=== PATIENT | female | born 1940 | race Caucasian/White ===

== ENCOUNTER 2022-10-30 12:23 | Observation (INO) | payer MEDICARE, SELFPAY ==
[2022-10-30 12:25] VITALS: BP 167/108; PULSE 92; RESP 18; TEMP 36.6; O2SAT 99; BMI 31.8
--- NOTE | 2022-10-30 13:06 | ED.VIS.FEGU ---
HPI HPI - Female History of Present Illness Chief Complaint: Vag Bleeding Narrative Narrative: 82-year-old female presenting with intermittent bleeding for the course of the month. Apparently she had an CAT scan done at an outside facility which showed concern for malignancy. She was at gynecology today and was getting a biopsy and lost about an estimated 500 cc of blood and was sent to the emergency room due to continued bleeding with initial plan to go to the OR for D&C. On arrival her depends does not appear to be bloody. Her vital signs are stable and she is afebrile. There is concern that she is on Eliquis and she might bleed more. Patient is elderly and she is not a good informant. She is also very hard of hearing. PFSH PFSH Allergy/AdvReac Type Severity Reaction Status Date / Time codeine Allergy NEEDS Verified 10/30/22 12:24 FOLLOW-UP Social History Smoking Status: Never smoker ROS ROS ED Constitutional Constitutional ED: Denies chills or fever(s) Eyes Eyes: Denies change in vision ENT ENT ED: Denies rhinorrhea or sore throat Cardiovascular Cardiovascular: Denies chest pain or palpitations Respiratory/Chest Respiratory/Chest: Denies cough or dyspnea Gastrointestinal Gastrointestinal: Denies abdominal pain, constipation, nausea or vomiting Genitourinary Genitourinary ED: Reports other Details: Vaginal bleeding Musculoskeletal Musculoskeletal: Denies arthralgias or myalgias Integumentary Denies abscess or Abrasions Neurologic Neurologic: Denies headache(s) or paresthesias Psychiatric Psychiatric: Denies anxiety or depression EXAM Physical Exam Const Vital Signs: 10/30/22 12:25 Temperature 97.8 F Temperature Source Temporal Pulse Rate 92 Respiratory Rate 18 Blood Pressure 167/108 H Blood Pressure Mean 127 Pulse Ox 99 Oxygen Delivery Method Room Air Positive well nourished General Appearance ED: NAD HEENT Reports moist mucous membranes Negative for trauma Eyes PERRL and EOMs intact bilaterally General Eye ED: Negative for pale conjunctiva Neck no lymphadenopathy Resp normal respiratory effort and clear to auscultation bilaterally Auscultation: Negative for rales, rhonchi or wheezes Cardio regular rate and regular rhythm GI normal to inspection, nondistended, normoactive bowel sounds Extremity normal to inspection and full ROM Neuro oriented x3 and CN's II-XII intact bilaterally Sensorium / Orientation: alert Motor Exam: strength 5/5 throughout Psych mental status grossly normal Skin no rashes or lesions noted and no wounds General Skin Exam: Negative for jaundice MDM MDM MDM Narrative Medical decision making narrative: At the time of entering the room Dr. Cope was in the room and did a vaginal exam and there was no significant bleeding. Blood work will be obtained. Patient currently with no active bleeding. Dr. Cope did speak to her and she is unsure if she wants to have a D&C. There is no family in the room. Gynecology requested a CBC, BMP, INR, type and screen. We will wait for the results of these test to come back and speak with family as she does not have any with her. CBC showed a white blood cell count of 9.8, hemoglobin 14.0. Platelets are normal at 393. PT and INR normal. Renal function electrolytes within normal limits. Discussed with Dr. Cope who had spoken to her POA who could not come and get her today. There is concerned about sending her home overnight. She states that she will admit her for observation and monitoring due to the vaginal bleeding and discussed the procedures with her POA tomorrow. Impression: 1. Vaginal bleeding 2. Pelvic mass Lab Data Attestation: I reviewed the patient's lab results. Labs: Laboratory Results - last 24 hr 10/30/22 10/30/22 10/30/22 13:05 13:05 13:05 WBC 9.8 RBC 4.65 Hgb 14.0 Hct 45.0 MCV 96.8 MCH 30.1 MCHC 31.1 L RDW Std Deviation 54.0 H RDW Coeff of Mike 15.1 H Plt Count 393 MPV 10.1 Immature Gran % (Auto) 0.400 Neut % (Auto) 53.5 Lymph % (Auto) 26.0 [place] % (Auto) 10.0 Eos % (Auto) 9.7 H Baso % (Auto) 0.4 Absolute Neuts (auto) 5.3 Absolute Lymphs (auto) 2.55 Nucleated RBC % 0 PT 13.1 INR 1.0 Sodium 143 Potassium 4.2 Chloride 110 H Carbon Dioxide 26.0 Anion Gap 7 BUN 9 Creatinine 0.78 Estim Creat Clear Calc 37.68 Est GFR (MDRD) Af Amer 91 Est GFR (MDRD) Non-Af 75 BUN/Creatinine Ratio 11.6 Glucose 98 Calcium 10.1 Discharge Plan Triage Chief Complaint: Vag Bleeding ED Provider: Dipak Gibson
[2022-10-30 13:17] LABS: Absolute Lymphocyte Count 2.55 X10^3/uL (0.83-4.51); Absolute Neutrophil Count 5.3 X10^3/uL (2.0-7.7); Basophil# 0.04 X10^3/uL; Basophil% 0.4 % (0-1); Eosinophil# 0.95 X10^3/uL; Eosinophils% 9.7 % (0-5); Lymphocyte # 2.55 X10^3/ul (0.83-4.51); Mean Corp Hgb Conc 31.1 g/dL (32-36); Mean Corpuscular Hgb 30.1 pg (27.0-32.0); Mean Corpuscular Volume 96.8 fL (81-99); Mean Platelet Vol. 10.1 fl (6.2-12.0); Monocyte# 0.98 X10^3/uL; NRBC Flagged by Analyzer 0 % (0-5); Neutrophil # 5.25 X10^3/uL (2.7-7.7); Neutrophil % 53.5 % (47-70); Platelet Count 393 K/mm3 (150-450); RBC Distribution Width CV 15.1 % (11.6-14.6); Red Blood Count 4.65 M/mm3 (4.2-5.4); White Blood Count 9.8 K/mm3 (4.4-11.0)
[2022-10-30 13:26] LABS: Prothrombin Time (Protime)PT. 13.1 SECONDS (11.7-14.9)
[2022-10-30 13:31] LABS: Anion Gap 7 (5-15); BUN 9 mg/dL (7-18); BUN/Creat Ratio 11.6 RATIO (10-20); Calcium,Total 10.1 mg/dL (8.5-10.1); Chloride 110 mmol/L (98-107); Creatinine, Serum 0.78 mg/dL (0.55-1.02); EST Glomerular Filtration Rate 75 mL/min (>60); Est Glom Filt Rate - Afr Amer 91 mL/min (>60); Estimated Creatinine Clearance 37.68 ml/min; Glucose 98 mg/dL (74-106); Potassium 4.2 mmol/L (3.5-5.1); Sodium Level 143 mmol/L (136-145)
[2022-10-30 15:28] VITALS: BP 161/84; PULSE 80; RESP 17; TEMP 36.9; O2SAT 99
[2022-10-30 16:07] VITALS: BMI 30.4
--- NOTE | 2022-10-30 17:34 | HP.PCM.OB_ITS ---
HPI - General General Date of Admission: 10/30/22 Date of Service: 10/30/22 Chief Complaint: vaginal bleeding HPI Narrative ROSALES ROCHE, is a 82 F who presents with VB. She was evaluated in the office by MANUFACTURER AGENT for vaginal bleeding. She was recently seen at an outside ER for this. At that time Hgb ~13 and she had a 2 cm uterine mass on pelvic imaging. She was instructed to follow up with a roving weight gauger provider for further evaluation. She saw the MANUFACTURER AGENT in the office today who noted dark red-brown blood on exam, and the bleeding increased so she was sent to the ER. Once in the ER her bleeding was minimal and brown in color. She denies any sy mptoms of anemia. She otherwise feels well and offers no complaints today. She has a director day care center with her in the ER. [facility] Medical History (Updated 10/30/22 @ 17:[address] Paulina Cope, DO) Atrial fibrillation Cellulitis GERD (gastroesophageal reflux disease) Hypertension Home Medications acetaminophen 500 mg tablet 1,000 mg PO Q6H PRN Pain 10/30/22 [History Last Taken 10/30/22] apixaban 5 mg tablet 5 mg PO BID 10/30/22 [History Last Taken Unknown] ascorbic acid (vitamin C) 500 mg tablet 500 mg PO DAILY SUPPLEMENT 10/30/22 [History Last Taken 10/30/22] atorvastatin 40 mg tablet 40 mg PO DAILY HLD 10/30/22 [History Last Taken 10/29/22] cholecalciferol (vitamin D3) 50 mcg (2,000 unit) capsule 50 mcg PO DAILY SUPPLEMENT 10/30/22 [History Last Taken 10/30/22] diclofenac sodium 1 % topical gel 1 ea topical BID PRN Pain 10/30/22 [History Last Taken 10/30/22] diltiazem HCl 90 mg tablet 90 mg PO 4XD HTN 10/30/22 [History Last Taken 10/30/22] docusate sodium 100 mg capsule 100 mg PO DAILY CONSTIPATION 10/30/22 [History Last Taken 10/30/22] lisinopril 20 mg tablet 20 mg PO DAILY HTN 10/30/22 [History Last Taken 10/30/22] multivit with jgwyhqis-kcld-YG-lutein 8 mg iron-400 mcg-300 mcg tablet (Centrum Silver Women) 1 tab PO DAILY SUPPLEMENT 10/30/22 [History Last Taken 10/30/22] pantoprazole 40 mg tablet,delayed release 40 mg PO DAILY GERD 10/30/22 [History Last Taken 10/30/22] Allergy/AdvReac Type Severity Reaction Status Date / Time codeine Allergy NEEDS Verified 10/30/22 12:24 FOLLOW-UP Surgical History Total knee replacement status Social History Smoking Status: Never smoker Vital Signs Vital Signs Vital Signs: 10/30/22 12:25 10/30/22 15:28 10/30/22 15:28 Temperature 97.8 F 98.5 F 98.5 F Temperature Source Temporal Temporal Temporal Pulse Rate 92 80 80 Respiratory Rate 18 17 17 Blood Pressure 167/108 H 161/84 H 161/84 H Blood Pressure Mean 127 109 109 Pulse Ox 99 99 99 Oxygen Delivery Method Room Air Room Air Room Air Weight Weight: 183 lb 5 oz Body Mass Index (BMI) 30.4 Physical Exam Const alert and no apparent distress General Appearance: comfortable Resp normal respiratory effort GI soft to palpation and non-tender Narrative: Scant brown blood on pad Labs Labs Labs: Hct 45.0 % (37-47) Hgb 14.0 g/dL (12.0-15.0) Assessment & Plan (1) Vaginal bleeding: PLAN: - Bleeding has slowed on exam in the ER and the blood is dark. VSS and Hgb stable. Discussed with patient and POA concern for uterine malignancy given mass and bleeding. Recommend hysteroscopy, D&C. Will hold Eliquis and make NPO @ midnight. Discussed surgery for further diagnosis with POA. He can be present on 10/31/22 to provide consent and he desires to proceed with observation and surgery tomorrow. Pad counts overnight. Start oral progesterone for bleeding. (2) PMB (postmenopausal bleeding): (3) Uterine mass: (4) Hypertension: (5) History of atrial fibrillation:
[2022-10-30] MEDS: 0.9% Saline Lock 10 ML Syringe IV (18:48)
[2022-10-30] MEDS: 0.9% Normal Saline 1,000 ML 50 ML IV (18:48)
[2022-10-30] MEDS: dilTIAZem 60 MG Tablet PO ×2 (18:51→21:40)
[2022-10-30] MEDS: dilTIAZem 30 MG Tablet PO ×2 (18:51→21:40)
[2022-10-30 21:19] VITALS: BP 121/70; PULSE 101; RESP 18; TEMP 37.1; O2SAT 96
[2022-10-30] MEDS: Atorvastatin Calcium 40 MG Tablet PO (21:40)
[2022-10-31] VITALS (11 sets, daily range): BP systolic 125–145; BP diastolic 70–89; PULSE 78–94; RESP 16–81; TEMP 36.4–37.1; O2SAT 95–100; BMI 30.4
--- NOTE | 2022-10-31 01:53 | EKG12_ITS ---
Test Reason : AM EKG Blood Pressure : / mmHG Vent. Rate : 088 BPM Atrial Rate : 091 BPM P-R Int : 000 ms QRS Dur : 090 ms QT Int : 400 ms P-R-T Axes : 000 -11 -03 degrees QTc Int : 484 ms Atrial fibrillation Poor R wave progression Abnormal ECG Confirmed by RON CEDEÑO, MEI ([id number]), editor publications GIGI SHORT ([id number]) on 11/01/2022 10:05:37 AM Referred By: TRISH Confirmed By:MEI VELASQUEZ MD
[2022-10-31 05:54] LABS: Absolute Lymphocyte Count 3.12 X10^3/uL (0.83-4.51); Absolute Neutrophil Count 4.1 X10^3/uL (2.0-7.7); Basophil# 0.05 X10^3/uL; Basophil% 0.5 % (0-1); Eosinophil# 1.05 X10^3/uL; Hematocrit 39.8 % (37-47); Hemoglobin 12.4 g/dL (12.0-15.0); Lymphocyte # 3.12 X10^3/ul (0.83-4.51); Lymphocyte % 32.7 % (19-41); Mean Corp Hgb Conc 31.2 g/dL (32-36); Mean Corpuscular Hgb 29.7 pg (27.0-32.0); Mean Corpuscular Volume 95.4 fL (81-99); Mean Platelet Vol. 10.7 fl (6.2-12.0); Monocyte# 1.16 X10^3/uL; Monocyte% 12.1 % (0-10); NRBC Flagged by Analyzer 0 % (0-5); Neutrophil # 4.14 X10^3/uL (2.7-7.7); Neutrophil % 43.4 % (47-70); Platelet Count 373 K/mm3 (150-450); RBC Distribution Width CV 14.9 % (11.6-14.6); RBC Distribution Width SD 52.2 fl (35.1-43.9); Red Blood Count 4.17 M/mm3 (4.2-5.4); White Blood Count 9.6 K/mm3 (4.4-11.0)
[2022-10-31 06:01] LABS: International Normalized Ratio 1.1
[2022-10-31 06:15] LABS: Partial Thromboplast Time 31.4 Seconds (24.1-36.2)
[2022-10-31 06:47] LABS: AST(SGOT) 14 U/L (15-37); Alanine Aminotransfer ALT/SGPT 20 U/L (13-56); Albumin, Serum 2.6 g/dL (3.2-5.0); Alkaline Phosphatase 95 U/L (45-117); Anion Gap 8 (5-15); BUN 9 mg/dL (7-18); BUN/Creat Ratio 14.4 RATIO (10-20); Bilirubin, Direct 0.13 mg/dL (0.00-0.30); Calcium,Total 9.6 mg/dL (8.5-10.1); Chloride 110 mmol/L (98-107); Creatinine, Serum 0.62 mg/dL (0.55-1.02); EST Glomerular Filtration Rate 97 mL/min (>60); Est Glom Filt Rate - Afr Amer 117 mL/min (>60); Estimated Creatinine Clearance 37.68 ml/min; Globulin 3.9 g/dL (2.2-4.2); Glucose 90 mg/dL (74-106); Potassium 3.4 mmol/L (3.5-5.1); Protein, Total 6.5 g/dL (6.4-8.2); Sodium Level 144 mmol/L (136-145)
[2022-10-31] MEDS: dilTIAZem 30 MG Tablet PO ×3 (08:21→21:25)
[2022-10-31] MEDS: Multivitamins,Ther W-Minerals Tablet 1 TABLET PO (08:22)
[2022-10-31] MEDS: Docusate Sodium 100 MG Capsule PO (08:22)
[2022-10-31] MEDS: dilTIAZem 60 MG Tablet PO ×3 (08:22→21:25)
[2022-10-31] MEDS: Cholecalciferol (VIT D3) 25 MCG TABLET (1,000 UNITS) 50 MCG PO (08:22)
[2022-10-31] MEDS: Lisinopril 20 MG Tablet PO (08:22)
[2022-10-31] MEDS: Ascorbic Acid 500 MG Tablet PO (08:22)
[2022-10-31] MEDS: Pantoprazole Sodium 40 MG Tablet PO (08:22)
--- NOTE | 2022-10-31 13:20 | PN.OBGYN_ITS ---
Subjective Subjective Patient without new complaints today. Difficulty communicating with patient due to limited hearing. Discussed case with patient's son and [id number] who are present. They states she has had some light vaginal bleeding for a few days. Became heavier over the weekend. They deny any blood in her urine. They deny any family history of breast, colon or uterine cancer other than she has a sister who is diagnosed with breast cancer recently and advanced age. They deny a known history of abnormal Pap smears. Objective Data Objective Data Vital Signs: Vital Signs Temp Pulse Resp BP Pulse Ox O2 Del Method 97.8 F 78 18 136/89 H 98 Room Air 10/31/22 12:06 10/31/22 12:06 10/31/22 12:06 10/31/22 12:06 10/31/22 12:06 10/31/22 12:06 Oxygen Delivery Method Room Air Weight: 83.149 kg Body Mass Index (BMI) 30.4 Intake & Output: Intake and Output for Last 24 Hours 10/29/22 10/30/22 10/31/22 23:59 23:59 23:59 Output Total 1500 / 1500 850 / 850 Balance -1500 / -1500 -850 / -850 Lab / Micro Data Result Diagrams: 10/31/22 04:29 10/31/22 04:29 Labs: Laboratory Results - last 24 hr 10/30/22 13:05: PT 13.1, INR 1.0 10/30/22 13:05: Sodium 143, Potassium 4.2, Chloride 110 H, Carbon Dioxide 26.0, Anion Gap 7, BUN 9, Creatinine 0.78, Estim Creat Clear Calc 37.68, Est GFR (MDRD) Af Amer 91, Est GFR (MDRD) Non-Af 75, BUN/Creatinine Ratio 11.6, Glucose 98, Calcium 10.1 10/31/22 04:29: WBC 9.6, RBC 4.17 L, Hgb 12.4, Hct 39.8, MCV 95.4, MCH 29.7, MCHC 31.2 L, RDW Std Deviation 52.2 H, RDW Coeff of Mike 14.9 H, Plt Count 373, MPV 10.7, Immature Gran % (Auto) 0.300, Neut % (Auto) 43.4 L, Lymph % (Auto) 32.7, [place] % (Auto) 12.1 H, Eos % (Auto) 11.0 H, Baso % (Auto) 0.5, Absolute [place] ts (auto) 4.1, Absolute Lymphs (auto) 3.12, Nucleated RBC % 0 10/31/22 04:29: PT 14.0, INR 1.1, APTT 31.4 10/31/22 04:29: Sodium 144, Potassium 3.4 L, Chloride 110 H, Carbon Dioxide 26.0, Anion Gap 8, BUN 9, Creatinine 0.62, Estim Creat Clear Calc 37.68, Est GFR (MDRD) Af Amer 117, Est GFR (MDRD) Non-Af 97, BUN/Creatinine Ratio 14.4, Glucose 90, Calcium 9.6, Total Bilirubin 0.40, Direct Bilirubin 0.13, AST 14 L, ALT 20, Alkaline Phosphatase 95, Total Protein 6.5, Albumin 2.6 L, Globulin 3.9 Physical Exam Narrative Awake, alert, no acute distress dressed. Lungs clear to auscultation bilateral Heart: Slightly irregular Assessment & Plan (1) Uterine mass: PLAN: Risk benefits and alternatives to hysteroscopy D&C with polyp resection were discussed with the patient, and her family. Consent was signed by her son who is her healthcare power of energy attorney. Patient agrees to proceed. Will likely need to keep tonight and transport back to long-term tomorrow. In addition, there is a question of an adnexal cyst on a previous ultrasound. I would like to have this repeated with an empty bladder to clarify whether she truly has an adnexal mass or something of concern. Patient consented for cystoscopy as well, they understand that if I see any abnormalities I will consult urology and patient may need another procedure for biopsies. However, with the pelvic ultrasound findings felt the patient could benefit from this at the time of anesthesia possible bladder abnormality. We will get a pelvic ultrasound post operatively and check a Ca125 if there is in fact an adenxal mass. (2) PMB (postmenopausal bleeding):
--- NOTE | 2022-10-31 13:35 | EMB_PTH ---
PATIENT: ROSALES ROCHE LOC: MS3 U#:[id number] AGE/SX: 82/F ROOM: [facility] [place]30/[address]: Dr. Paulina Cope, : 1940 BED: 1 DIS: 11/01/2022 SPEC #: [id number] RECD: 10/31/22 16:59 STATUS: MARY ANN REGarret #: [id number] ANNIKA: 10/31/22 13:[address]: Kylee Dominique DEPT: SURGICAL PATHOLOGY RECD BY: Yin Barbour ENTERED: 11/01/22 08:42 SP TYPE: ENDOM BX/C OTHR DR: Dr. Paulina Cope, DO No Primary Care Phys Tissues: Endometrium, NOS Procedures: Special Stain Group II Surgery Specimen Level IV Amyloid Stain (control) HEADER OPERATION: Hysteroscopy, D & C Symphion, endometrial mass resection PRE-OP DIAGNOSIS: Uterine mass, postmenopausal bleeding TISSUE SUBMITTED: Endometrial tissue and mass MICROSCOPIC DIAGNOSIS Endometrial tissue and mass, biopsy: Strips of benign secretory endometrium and superficial endocervix. Nodular myometrial tissue with hyalinization. See comment. AM:rosangela 11/02/2022 COMMENT [place] red stain for amyloid is negative in areas of hyalinization. Clinical correlation is suggested. Case has been reviewed in consultation with Dr. Godoy who concurs with the above diagnosis. IDC:SJ MICROSCOPIC DESCRIPTION Slides are reviewed. GROSS DESCRIPTION Received in fixative is one container labeled with the patient's name and designated endometrial curettings and mass. The specimen consists of multiple irregular fragments of light to dark ashley soft tissue that in aggregate measure 7 x 7 x 0.3 cm. The specimen is totally submitted in six cassettes. / AM:rosangela 11/01/2022 TC:5 CPT: 34451, 37138
[2022-10-31] MEDS: Lidocaine 1% /Epi 1:100 (20ml) 20 ML Vial (14:07)
--- NOTE | 2022-10-31 14:07 | CASEMGMT ---
Social work SW called pt sonAnuj and DIL, Lissette Ryan. Lissette Ryan confirmed pt return to [facility] when medically ready. Lissette Ryan stated pt is there for short term rehab. SW sent clinical updates to [facility] and will update the SNF with information regarding anticipated discharge when more information is known. PLAN: Return to [facility] in [place], when medically ready JAY Singh
--- NOTE | 2022-10-31 14:56 | OP.PCM_ITS ---
Problems Associated Problem List Diagnoses (1) Uterine mass: (2) PMB (postmenopausal bleeding): Report of Operation Date of Procedure: 10/31/22 Pre-Operative Diagnosis: PMB, uterine mass Post-Operative Diagnosis: same Surgery/Procedure Performed:: hysteroscopy D&C with uterine mass resection, cystoscopy Description of Surgical Findings:: large amount of blood in uterus and vagina, open patulous thin cervix. Ragged endometrium. Normal vagina. Vulva w/ some calcified inclusion cysts but no masses. Normal urethra and bladder Surgeon: Kylee Dominique quick service technician: Renetta Silva m3 Type of Anesthesia: MAC/Supplemental/Local Anesthesiologist: Mary Anne Cintron Special Medications: none Specimen's removed: endometrial curettings and mass Drains: gregory Estimated Blood Loss (mL): 20 Fluids Replaced: 400 Description of Procedure: The patient was taken to the OR where she was prepped and draped in dorsal lithotomy position. The weighted speculum was placed in the vagina and the anterior lip of the cervix was grasped with a single-tooth tenaculum. A paracervical block was administered with [1% lidocaine with 1-100,000 ep inephrine solution]. The cervix did not be need to be dilated because it was very thin and open. The Symphion hysteroscope was placed into the uterine cavity and the above findings were noted. Bilateral tubal ostia [were] identified. The resection device was readied and inserted. There was a large uterine mass on the left side of the uterus that was somewhat firm. It was likely a fibroid. This was resected. I tried several times to clamp off the cervix by still had a large amount of fluid returning from the cervical os. I then performed a gentle sharp curettage. There is still a small amount of the fibroid or mass noted at the top of the uterus. This was removed and then a quick curettage of the uterine cavity was performed because again I was having trouble keeping the fluid in the cervix.. The instruments were removed from the vagina. The specimen was handed off and sent to pathology. The Gregory was removed. I placed the cystoscope in the urethra and the bladder appeared grossly normal with a small amount debris. The urethra was normal. There were no masses or focal abnormalities. The Gregory catheter was replaced. All sponge and needle counts were correct. Vaginal sweep was performed by me. The patient was awakened and taken to the recovery room in stable condition. Calculated fluid deficit was 1200 cc of normal saline. Patient was given 10 mg of Lasix IV x1 at the completion of the procedure by anesthesia. Grafts/Implants Used: none Procedure Start Time: 14:07 Procedure Stop Time: 14:43 Complications none Admit VTE Documentation VTE Present on Admission: No VTE Mechan Device Prophylaxis: SCD's VTE Pharm Prophylaxis ordered?: No Reason prophylaxis not ordered:: Procedure Not Indicated
--- NOTE | 2022-10-31 15:37 | CASEMGMT ---
Addendum entered by Ana Trujillo 10/31/22 16:00: TC to pt son YANICK who signed surgery consent to discuss TORRES form. RN VANCE explained TORRES form, patient son voiced understanding. Son gave verbal consent for form and filed in chart. Second witness obtained. Pt provided with a copy of signed TORRES form. Patient son had no further questions or concerns at this time. Original Note: MARVIN WOODARD to pt room to complete TORRES, pt is off the floor at this time.
--- NOTE | 2022-10-31 16:02 | US_ITS ---
EXAM: US PELVIS TRANSVAGINAL CLINICAL INDICATION: PMB, possible ovarian mass/cyst follow up -- TECHNIQUE: Transvaginal pelvic ultrasound was performed with grayscale and color Doppler imaging. Transvaginal imaging was used for better evaluation of the endometrium and adnexa. This report was created using [employer] report [employer] technology. COMPARISON: None. FINDINGS: UTERUS/CERVIX: There are several hypoechoic masses in the uterus compatible fibroids the largest measuring 2.4 x 3.0 x 1.7 cm. Within the cervix there is a complex cystic structure that is septated and measures roughly 2.2 x 3.1 cm. The uterus measures 9.8 x 4.7 x 7.4 cm. The uterus is anteverted. The endometrium measures 3 mm. One of the fibroids has peripheral calcifications with distal shadowing. RIGHT OVARY: The right ovary is not visualized. LEFT OVARY: The left ovary is not visualized. FREE FLUID: None. BLADDER: Reason for catheter in the bladder. The bladder measures 3.7 x 2.7 x 5.7 cm for a volume of 29 mL. US/Transvaginal Non- IMPRESSION: 1. Nonvisualization of the ovaries. 2. Septated cystic structure seen within the cervix which may represent tunnel clusters or possibly adenoma malignum of the cervix. If indicated further evaluation with MRI may be beneficial. Electronically Signed: Randy Valdez MD at 20:53 EST ,
[2022-10-31] MEDS: 0.9% Saline Lock 10 ML Syringe IV (21:18)
[2022-10-31] MEDS: Atorvastatin Calcium 40 MG Tablet PO (21:25)
[2022-10-31] MEDS: Megestrol 40 MG Tablet PO (21:26)
[2022-11-01 05:47] LABS: Hematocrit 39.4 % (37-47); Hemoglobin 12.6 g/dL (12.0-15.0); Mean Corpuscular Hgb 30.1 pg (27.0-32.0); Mean Corpuscular Volume 94.3 fL (81-99); Mean Platelet Vol. 10.6 fl (6.2-12.0); Platelet Count 346 K/mm3 (150-450); RBC Distribution Width SD 51.7 fl (35.1-43.9); Red Blood Count 4.18 M/mm3 (4.2-5.4); White Blood Count 11.1 K/mm3 (4.4-11.0)
[2022-11-01 05:58] LABS: Anion Gap 7 (5-15); BUN 11 mg/dL (7-18); BUN/Creat Ratio 13.7 RATIO (10-20); Calcium,Total 9.8 mg/dL (8.5-10.1); Chloride 107 mmol/L (98-107); EST Glomerular Filtration Rate 72 mL/min (>60); Est Glom Filt Rate - Afr Amer 88 mL/min (>60); Glucose 101 mg/dL (74-106); Potassium 3.8 mmol/L (3.5-5.1); Sodium Level 143 mmol/L (136-145)
[2022-11-01 06:32] VITALS: BP 130/74; PULSE 86; RESP 18; TEMP 36.9; O2SAT 96
[2022-11-01 09:00] VITALS: BP 126/75; PULSE 66; RESP 18; TEMP 36.3; O2SAT 94
[2022-11-01] MEDS: dilTIAZem 60 MG Tablet PO ×2 (09:00→14:19)
[2022-11-01] MEDS: Pantoprazole Sodium 40 MG Tablet PO (09:00)
[2022-11-01] MEDS: Lisinopril 20 MG Tablet PO (09:00)
[2022-11-01] MEDS: dilTIAZem 30 MG Tablet PO ×2 (09:00→14:19)
[2022-11-01] MEDS: Megestrol 40 MG Tablet PO (09:00)
[2022-11-01] MEDS: Docusate Sodium 100 MG Capsule PO (09:00)
--- NOTE | 2022-11-01 09:12 | PCM.PROGNOTE ---
Subjective Subjective Patient seen at bedside, doing well. Patient reports she has no pain. Gregory catheter is draining. She is tolerating a regular diet. Minimal vaginal bleeding. Objective Data Objective Data Vital Signs: Vital Signs Temp Pulse Resp BP Pulse Ox O2 Del Method 98.5 F 86 18 130/74 H 96 Room Air 11/01/22 06:32 11/01/22 06:32 11/01/22 06:32 11/01/22 06:32 11/01/22 06:32 11/01/22 06:32 Oxygen Delivery Method Room Air Weight: 83.149 kg Body Mass Index (BMI) 30.4 Intake & Output: Intake and Output for Last 24 Hours 10/30/22 10/31/22 11/01/22 23:59 23:59 23:59 Intake Total 1870 / 1870 Output Total 1500 / 1500 2310 / 2310 350 / 350 Balance -1500 / -1500 -440 / -440 -350 / -350 Lab / Micro Data Result Diagrams: 11/01/22 04:55 11/01/22 04:55 Labs: Laboratory Results - last 24 hr 11/01/22 04:55: WBC 11.1 H, RBC 4.18 L, Hgb 12.6, Hct 39.4, MCV 94.3, MCH 30.1, MCHC 32.0, RDW Std Deviation 51.7 H, RDW Coeff of Mike 15.0 H, Plt Count 346, MPV 10.6 11/01/22 04:55: Sodium 143, Potassium 3.8, Chloride 107, Carbon Dioxide 29.0, Anion Gap 7, BUN 11, Creatinine 0.80, Estim Creat Clear Calc 47.10, Est GFR (MDRD) Af Amer 88, Est GFR (MDRD) Non-Af 72, BUN/Creatinine Ratio 13.7, Glucose 101, Calcium 9.8 Radiography Diagnostic Testing: Radiology Impression Transvaginal US 10/31/22 16:02 IMPRESSION: 1. Nonvisualization of the ovaries. 2. Septated cystic structure seen within the cervix which may represent tunnel clusters or possibly adenoma malignum of the cervix. If indicated further evaluation with MRI may be beneficial. Electronically Signed: Randy Valdez MD at 20:53 EST , Physical Exam Narrative Abdomen: Soft nondistended No bleeding noted on Peripad. Gregory draining yellow tinged urine. Const alert, oriented x3 and no apparent distress General Appearance: cooperative and comfortable Assessment & Plan Assessment/Plan (1) History of atrial fibrillation: (2) Hypertension: (3) Uterine mass: (4) PMB (postmenopausal bleeding): (5) Vaginal bleeding: PLAN: Plan POD#1, PMB, uterine mass- doing well 1) dc back to [facility] in [place]- will need to arrange transport 2) will send home on aygestin 3) Follow up pathology- will then arrange follow up once resulted 4) ultrasound results reviewed- Fibroid uterus- complex cystic structure w/in cervix, EM thickness 3mm. Ovaries not visualized 5) dc peripheral iv 6) DC gregory catheter
--- NOTE | 2022-11-01 09:18 | DCINST_ITS ---
Discharge Instructions Procedure D&C Diet Discharge Diet: No restrictions Activity May resume sexual activity in: 1 week Dressing / Incision Call your doctor if you observe: Fever of 101 or Higher, Inability to urinate, Using more than 1 pad per hour and Uncontrolled pain Follow Up Care Please Follow Up With: Jessica Babcock MD When: 1-2 weeks post OP if you need an appointment please call [phone] Test Results: Test results from this visit will be discussed in further detail at your follow- up appointment, if applicable. Discharge Plan Admission Admit Date/Time: 10/30/22 16:39 Attending Provider: Paulina Cope Primary Care Provider: Care PhysicianMary Primary Discharge Orders/Prescriptions Prescriptions: New norethindrone acetate [Aygestin] 5 mg tablet 5 mg PO BID 7 Days Qty: 14 0RF Continued Centrum Silver Women 8 mg iron-400 mcg-300 mcg Tablet 1 tab PO DAILY atorvastatin 40 mg Tablet 40 mg PO DAILY lisinopril 20 mg Tablet 20 mg PO DAILY acetaminophen 500 mg Tablet 1,000 mg PO Q6H PRN (Reason: Pain) ascorbic acid (vitamin C) 500 mg Tablet 500 mg PO DAILY pantoprazole 40 mg Tablet,Delayed Release (Dr/Ec) 40 mg PO DAILY docusate sodium 100 mg Capsule 100 mg PO DAILY diltiazem HCl 90 mg Tablet 90 mg PO 4XD diclofenac sodium 1 % Gel 1 ea TOPICAL BID PRN (Reason: Pain) cholecalciferol (vitamin D3) 50 mcg (2,000 unit) Capsule 50 mcg PO DAILY apixaban 5 mg Tablet 5 mg PO BID Referrals / Follow Up: Care Physician,No Primary [Primary Care Provider] - Disposition Disposition (needs filled in before D/C Order can be placed): Home, Self Care
--- NOTE | 2022-11-01 09:29 | DS.PCM_ITS ---
Discharge Summary Date of Admission: 10/30/22 Date of Discharge: 11/01/22 Summary: Was admitted to [facility] on 10/30/2022 with postmenopausal bleeding, uterine mass. She underwent a hysteroscopy dilation and curettage and uterine mass resection on 10/31/[address] Kylee Dominique. Was discharged home on postoperative day #1 in stable condition on Aygestin to control her bleeding and discharged to snf in [place]. We will follow-up pathology and have her follow-up with appropriate care team after pathology has resulted. Meaningful Use Info Meaningful Use Diagnoses (Choose all that apply): None applicable Discharge Plan Admission Admit Date/Time: 10/30/22 16:39 Attending Provider: Paulina Cope Primary Care Provider: Mary Dumont Primary Discharge Orders/Prescriptions Prescriptions: New norethindrone acetate [Aygestin] 5 mg tablet 5 mg PO BID 7 Days Qty: 14 0RF Continued Centrum Silver Women 8 mg iron-400 mcg-300 mcg Tablet 1 tab PO DAILY atorvastatin 40 mg Tablet 40 mg PO DAILY lisinopril 20 mg Tablet 20 mg PO DAILY acetaminophen 500 mg Tablet 1,000 mg PO Q6H PRN (Reason: Pain) ascorbic acid (vitamin C) 500 mg Tablet 500 mg PO DAILY pantoprazole 40 mg Tablet,Delayed Release (Dr/Ec) 40 mg PO DAILY docusate sodium 100 mg Capsule 100 mg PO DAILY diltiazem HCl 90 mg Tablet 90 mg PO 4XD diclofenac sodium 1 % Gel 1 ea TOPICAL BID PRN (Reason: Pain) cholecalciferol (vitamin D3) 50 mcg (2,000 unit) Capsule 50 mcg PO DAILY apixaban 5 mg Tablet 5 mg PO BID Referrals / Follow Up: Care PhysicianMary Primary [Primary Care Provider] - Disposition Disposition (needs filled in before D/C Order can be placed): Home, Self Care
--- NOTE | 2022-11-01 10:40 | PHA.DC.MR ---
Pharmacy Service has performed discharge medication reconciliation for this patient. The patient's discharge medication list was reviewed for discrepancies and discrepancies were resolved. Home Medications acetaminophen 500 mg tablet 1,000 mg PO Q6H PRN Pain 10/30/22 apixaban 5 mg tablet 5 mg PO BID 10/30/22 ascorbic acid (vitamin C) 500 mg tablet 500 mg PO DAILY SUPPLEMENT 10/30/22 atorvastatin 40 mg tablet 40 mg PO DAILY HLD 10/30/22 cholecalciferol (vitamin D3) 50 mcg (2,000 unit) capsule 50 mcg PO DAILY SUPPLEMENT 10/30/22 diclofenac sodium 1 % topical gel 1 ea topical BID PRN Pain 10/30/22 diltiazem HCl 90 mg tablet 90 mg PO 4XD HTN 10/30/22 docusate sodium 100 mg capsule 100 mg PO DAILY CONSTIPATION 10/30/22 lisinopril 20 mg tablet 20 mg PO DAILY HTN 10/30/22 multivit with euwfzetf-oxdv-UF-lutein 8 mg iron-400 mcg-300 mcg tablet (Centrum Silver Women) 1 tab PO DAILY SUPPLEMENT 10/30/22 pantoprazole 40 mg tablet,delayed release 40 mg PO DAILY GERD 10/30/22 norethindrone acetate 5 mg tablet (Aygestin) 5 mg PO BID 7 days #14 tabs 11/01/22
--- NOTE | 2022-11-01 10:52 | CASEMGMT ---
Social work SW faxed transfer to extended care form to Dr. Babcock to complete so pt can transfer back to [facility]. Will await the completed form before setting up transportation. JAY Singh
[2022-11-01] MEDS: Acetaminophen 500 MG Tablet 1000 MG PO (11:05)
--- NOTE | 2022-11-01 14:14 | CASEMGMT ---
Social Work? JACQUELINE notified pt and pt son, Anuj, of discharge back to [facility] today. Anuj spoke highly of [facility] and it's staff. Anuj expressed appreciation for all staff at [facility]. Set up cot transportation through [facility] for 4:00pm. JACQUELINE faxed all discharge orders to [facility] via [employer] and notified of discharge time. SW notified pt nurse of transport time. JACQUELINE made copies of discharge orders and placed on pt chart. Sent original orders in envelope with pt upon discharge.?? Disposition: [facility], skilled, convalescent, level of care? JAY Singh?
--- NOTE | 2022-11-01 14:32 | NURSING ---
Report called to Tammy at [facility].
[2022-11-01 14:36] VITALS: BP 138/72; PULSE 90; RESP 18; TEMP 37.1; O2SAT 98
[2022-11-01 15:51] VITALS: BP 138/72; PULSE 90; RESP 18; TEMP 37.1; O2SAT 98
[2022-11-03 20:35] LABS: Cancer Antigen 125 25.5 U/mL (0.0-38.1)
== END 2022-11-01 16:40 | disposition skilled nursing facility (03) ==
LOC: ED 13:46 → MS3 16:49
PROVIDERS: Anesthesiology; Obstetrics & Gynecology; Admitting Provider Obstetrics & Gynecology; Emergency Provider Student in an Organized Health Care Education/Training Program; Visit Provider Obstetrics & Gynecology
PROC: 0UB98ZZ Excision of Uterus, Via Natural or Artificial Opening Endoscopic (ICD-10-PCS; CPT 58558; principal; 2022-10-31 13:20)
DX: N85.8 Other specified noninflammatory disorders of uterus (principal); I48.91 Unspecified atrial fibrillation; N95.0 Postmenopausal bleeding; N93.9 Abnormal uterine and vaginal bleeding, unspecified; I10 Essential (primary) hypertension; H91.90 Unspecified hearing loss, unspecified ear; K21.9 Gastro-esophageal reflux disease without esophagitis; Z79.899 Other long term (current) drug therapy; Z79.01 Long term (current) use of anticoagulants
CPT/HCPCS: 58558; 00952; 36415; 76830; 80048; 80076; 85025; 85027; 85610; 85730; 86304; 88305; 88313; 93005; 99221; 99283; J7030; A4216; G0378; J1940; J2405